=== PATIENT | male | born 1995 | race Asian ===

== ENCOUNTER 2017-11-24 22:00 | Emergency (ER) | payer OTHER ==
[2017-11-25] MEDS: HYDROCODONE/APAP (5/325) TAB PO (00:06)
[2017-11-25] MEDS: IBUPROFEN 600 MG TAB PO (00:06)
== END 2017-11-25 01:23 | disposition home or self-care (01) ==
LOC: FTE 22:00
DX: S22.42XA Multiple fractures of ribs, left side, initial encounter for closed fracture (principal); V43.52XA Car driver injured in collision with other type car in traffic accident, initial encounter
CPT/HCPCS: 71100; 99284-25